=== PATIENT | female | born 1995 | race Caucasian/White ===

== ENCOUNTER 2022-11-24 05:27 | Inpatient (IN) ==
--- NOTE | 2022-11-14 15:57 | Anesthesiology Consultation ---
Date of Service November 14, 2022 Assessment & Plan (1) Encounter for pre-operative examination: Infectious disease screening: Per manager transport on 11/14: No known infectious disease contacts or current infectious disease symptoms. No noted Covid positive test result in past 90 days. 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 Surgery Operation Date: 11/24/22 07:30 Proposed Procedures p Section (Delivery of Baby through abdominal incision) - Derrick Singh MD Height/Weight Height: 5 ft 5 in Weight: 108.862 kg Allergies Allergy/AdvReac Type Severity Reaction Status Date / Time No Known Drug Allergies Allergy Verified 11/14/22 15:30 Medications Home Medications Medication Instructions Recorded Confirmed Last Taken prenat.vits,darlene,[id number] 1 tab PO DAILY 04/24/22 11/14/22 Unknown ondansetron 4 mg disintegrating 4 mg PO Q8H PRN nausea and 05/22/22 11/14/22 Unknown tablet vomiting #14 tabs famotidine 40 mg tablet 40 mg PO QAM 11/14/22 11/14/22 Unknown Past Medical History Medical History Allergic rhinitis Exercise-induced bronchospasm Hx "years ago" No inhaler use x years, no current issues GERD (gastroesophageal reflux disease) Reactive airway disease No inhaler use x years, no current issues Past Family History Family History Grandfather Asthma Unknown Asthma Grandmother Colon cancer Aunt Colon cancer Denies family history of Ovarian cancer Breast cancer Past Surgical History Surgical History History of dental surgery Hx of colonoscopy Hx of LASIK Social History Smoking Status: Never smoker Do You Dip or Chew Tobacco: No Hx Alcohol Use: Yes alcohol intake frequency: other Alcohol Intake Frequency Comment: not while , but prior to a few times per month Hx Substance Use: No substance use type: does not use
[2022-11-24] MEDS ORDERED: LACTATED RINGER'S 1,000 ML IV SCH (06:00)
[2022-11-24] MEDS ORDERED: CITRIC ACID/SODIUM CITRATE 15 ML UDC PO SCH (06:00)
[2022-11-24 06:28] LABS: Basophils # (auto) 0.02 K/uL (0.00-0.20); Basophils % (auto) 0.2 %; Eosinophils # (auto) 0.06 K/uL (0.00-0.50); Eosinophils % (auto) 0.6 %; Hematocrit (blood only) 32.3 % (37.0-47.0); Hemoglobin 10.8 g/dl (12.0-16.0); Immature Granulocytes # (auto) 0.04 K/uL (0.01-0.20); Immature Granulocytes % (auto) 0.4 %; Lymphocytes # (auto) 2.25 K/uL (1.20-3.40); Lymphocytes % (auto) 23.8 %; Mean Corpuscular Hemoglobin 28.6 pg (25.0-34.0); Mean Corpuscular Hgb Conc 33.4 g/dL (32.0-36.0); Mean Corpuscular Volume 85.4 fL (80.0-100.0); Mean Platelet Volume 11.9 fL (9.4-12.4); Monocytes # (auto) 0.62 K/uL (0.11-0.59); Monocytes % (auto) 6.5 %; Neutrophils # (auto) 6.48 K/uL (1.40-6.50); Neutrophils % (auto) 68.5 %; Platelet Count 270 K/uL (130-400); RDW Coefficient of Variation 13.3 % (11.5-14.5); RDW Standard Deviation 41.2 fL (36.4-46.3); Red Blood Count 3.78 M/uL (4.20-5.40); White Blood Count 9.47 K/ul (4.8-10.8)
[2022-11-24] MEDS ORDERED: SODIUM CHLORIDE 0.9% 250 ML IV PRN (06:29)
[2022-11-24] MEDS ORDERED: fentaNYL citrate PF 100 MCG/2 ML VIAL ONE (06:32)
[2022-11-24] MEDS ORDERED: MoRPHine SULFATE PF 1 MG/ML 10 ML AMP/VIAL ONE (06:32)
[2022-11-24] MEDS ORDERED: OXYTOCIN 10 UNITS/ML VIAL ONE (06:32)
--- NOTE | 2022-11-24 07:29 | History & Physical Report ---
Date of Service November 24, 2022 Assessment & Plan (1) Supervision of normal intrauterine in primigravida: Plan: 27yo at 39w0d GA presents for pLTCS for breech presentation. 1. Fetus: Reactive 2. Vitals: WNL 3. Suspected LGA. (2) Obesity affecting , antepartum: (3) Breech presentation: Admission and Anticipated Discharge Date Admission Date: November 24, 2022 History of Present Illness Primary Care Provider: DEB Gallegos 27yo at 39w0d GA presents for pLTCS for breech presentation. and Delivery Plans Breech and lga >98% C/S SCHEDULED FOR 11/24/[address] CARCAMO Obesity (BMI between 35-39 @ beginning of ) *Growth US @ 32 wks *Weekly NSTs @ 36wks +Chlamydia @ NOB (RNA) Retested at 9wk at patient request, culture rather than RNA as instructed by LAB, was negative. Retest @ 36 weeks +GBS - treat in labor OB Labs: Blood Type O Positive 05/05/22 Antibody Screen NEGATIVE 05/05/22 Hemoglobin 11.4 g/dl (12.0-16.0) L 09/12/22 Hematocrit 33.5 % (37.0-47.0) L 09/12/22 Mean Corpuscular Volume 89.5 fL (80.0-100.0) 05/05/22 Platelet Count 319 K/uL (130-400) 05/05/22 Rubella IgG Antibody Immune (Immune) 05/05/22 Rapid Plasma Reagin Nonreactive (Nonreactive) 05/05/22 Hepatitis B Surface Antigen. NON-REACTIVE (NON-REACTIVE) 05/05/22 Hepatitis C Antibody (EIA) NON-REACTIVE (NON-REACTIVE) 05/05/22 HIV (1&2) Ag and Ab Confirmation NON-REACTIVE (NON-REACTIVE) 05/05/22 Glucose 1 Hour 50 gm Load 154 mg/dl (70-130) H 09/12/22 OB Optional Labs: Chlamydia trachomatis RNA DETECTED (NotDetected) A 04/25/22 Neisseria gonorrhoeae RNA Not Detected (NotDetected) 04/25/22 Thyroid Stimulating Hormone (TSH) 2.740 uIu/ml (0.300-4.500) 09/20/18 Labs Reviewed: low risk cfdna - sln declines afp - sln CT culture was negative--akh Allergies Allergy/AdvReac Type Severity Reaction Status Date / Time No Known Drug Allergies Allergy Verified 11/19/22 14:36 Home Medications Medication Instructions Recorded Confirmed Type prenat.vits,darlene,[id number] 1 tab PO DAILY 04/24/22 11/19/22 History ondansetron 4 mg disintegrating 4 mg PO Q8H PRN nausea and 05/22/22 11/19/22 Rx tablet vomiting #14 tabs famotidine 40 mg tablet 40 mg PO QAM 11/14/22 11/19/22 History Patient History Medical History Allergic rhinitis Exercise-induced bronchospasm Hx "years ago" No inhaler use x years, no current issues GERD (gastroesophageal reflux disease) Reactive airway disease No inhaler use x years, no current issues Surgical History History of dental surgery Hx of colonoscopy Hx of LASIK Family History Grandfather Asthma Unknown Asthma Grandmother Colon cancer Aunt Colon cancer Denies family history of Ovarian cancer Breast cancer Social History (Updated 04/24/22 @ 09:56 by Preeti Andujar) Smoking Status: Never smoker Second Hand Exposure: No; Do You Dip or Chew Tobacco: No; Tobacco Cessation Education Requested by Patient: No Hx Alcohol Use: Yes Hx Substance Use: No Preferred Language: Turkmen Communication Ability: Effective Central Processing Technician Required: No Beliefs That Will Affect Care: None marital status: marital status details: Lico (27) [phone] Current Living Situation: Spouse Current Living Situation Comment: lives with spouse, 2 dogs. current occupational status: employed current occupation: Admin Coordinatior at [employer] Other Information That Helps Us Care for You: No Feels Safe at Home: Yes Safety Concerns: Feels Safe At This Time Diet: regular caffeine: Yes Physical Activity Frequency: 3-4 Times per Week Seatbelt Use: always Assistive Devices: None Physical Exam Constitutional: WD/WN, vitals as above Respiratory: normal respiratory effort, lungs clear to auscultation Cardiovascular: RRR, no murmur, no edema Psychiatric: A+Ox3, euthymic affect Results & Data Vital Signs (Past 12 Hours) Vital Signs Temp Pulse Resp BP 11/24/22 06:14 36.7 C 18 11/24/22 07:08 82 107/68 11/24/22 05:58 91 H 118/60 Code Status & VTE Plan VTE Prophylaxis Plan VTE Prophylaxis will be ordered: No Reason for no VTE drug order: Treatment not indicated Coding Level of Care Code None Diagnoses Supervision of normal intrauterine in primigravida Z34.00 Obesity affecting , antepartum O99.210 Breech presentation O32.1XX0
[2022-11-24] MEDS ORDERED: ePHEDrine sulfate 50 MG/ML AMP IV PRN (08:19)
[2022-11-24] MEDS ORDERED: LACTATED RINGER'S 500 ML IV PRN (08:19)
[2022-11-24] MEDS ORDERED: PROMETHAZINE HCL 25 MG in SODIUM CHLORIDE 0.9% 50 ML IV PRN (08:19)
[2022-11-24] MEDS ORDERED: NALOXONE HCL 0.08 MG in SYRINGE 1.8 ML IV PRN (08:19)
[2022-11-24] MEDS ORDERED: diphenhydrAMINE 50 MG/ML VIAL IV PRN (08:19)
[2022-11-24] MEDS ORDERED: NALOXONE HCL 1 MG in SODIUM CHLORIDE 0.9% 1,000 ML IV PRN (08:19)
[2022-11-24] MEDS ORDERED: NALBUPHINE HCL INJ 10 MG/ML AMP IV PRN (08:19)
[2022-11-24] MEDS ORDERED: KETOROLAC 30 MG/ML VIAL IV PRN ×2 (08:19→09:18)
[2022-11-24] MEDS ORDERED: MoRPHine SULFATE PF 1 MG/ML 10 ML AMP/VIAL INT SPINAL ONE (08:19)
[2022-11-24] MEDS ORDERED: NALOXONE HCL 0.4 MG/1 ML VIAL/CARP IV PRN (08:19)
[2022-11-24] MEDS ORDERED: HYDROmorphone INJ 0.5 MG/0.5 ML SYR IV PRN (08:19)
[2022-11-24] MEDS ORDERED: SODIUM CHLORIDE 0.9% 1,000 ML IV SCH (08:30)
[2022-11-24] MEDS ORDERED: NO NARCOTICS OR SEDATIVES SCH (08:30)
[2022-11-24] MEDS ORDERED: DC INTRASPINAL MORPHINE SCH (08:30)
--- NOTE | 2022-11-24 09:05 | Operative Report ---
PG Post Operative Report Pre & Post Diagnosis Operation Date: 11/24/22 07:30 Pre-Op Diagnosis: Intrauterine , primary section for breech presentation Post-Op Diagnosis: Intrauterine , primary section for breech presentation I identified the patient and participated in the time-out.: Yes Procedure Operation Date: 11/24/22 07:30 Actual Procedures p Section (Delivery of Baby through abdominal incision) living male at 0814(Bilateral) - Derrick Singh MD Surgeon Derrick Singh MD Senior Facilities Manager Dr Adames Estimated Blood Loss 700 Findings Consistent with Post-Op Diagnosis Specimens None Description of Procedure The patient was taken to the operating room after consents were ensured. Upon presentation, she was properly identified. Spinal anesthesia was obtained without difficulty. The patient was then prepped and draped in normal sterile fashion. Preprocedural timeout was performed. A Pfannenstiel incision was then made with a knife at the prior location. This was carried down to underlying fascia with the Bovie. The fascia was nicked at the midline with a knife and extended laterally with pickups and Nuno scissors. The superior aspect of the fascia was grasped with Kochers x2, elevated off the underlying rectus muscles with blunt dissection and Nuno scissors. Inferior aspect of the fascia was grasped with Kochers x2, elevated off the underlying rectus muscles using blunt dissection. The midline was then entered bluntly, placed on stretch to provide adequate room for delivery. A low transverse uterine incision was then made with a knife. The uterine cavity and amniotic cavity entered bluntly, placed on stretch to provide adequate room for delivery. Baby was noted to be in breech presentation and the bottom was delivered, the legs were swept in an internal rotation to delivery. Delivery continue until shoulder level and the arm were swept in an internal rotation for delivery. head delivered with out difficulty. Cord was double clamped and cut and taken of the awaiting nursery staff for evaluation. Cord blood was obtained. Attention was then turned to delivery of the placenta, which was delivered intact, 3-vessel cord, with gentle cord traction and uterine massage. The uterus was then exteriorized, wrapped in a wet lap and several passes were made, removing any remaining membranes with a dry lap. The hysterotomy was then reapproximated with 0 Vicryl continuous running locked stitch. A second imbricating layer was performed. The hysterotomy was then reinspected and hemostasis was noted. The uterus was then returned to the maternal abdomen. The muscles, subcutaneous and fascial layers were inspected to be hemostatic.The facia was reapproximated with 0 Vicryl in continuous stitch. The subcutaneous layers were reapproximated with 2-0 plain and continuous running stitch in 2 layers. The skin was reapproximated with 3-0 Vicryl with a subcuticular stitch. Needle, sponge, and instrument counts were correct at the completion of the case. Both mother and stable in the immediate post-delivery period I attest to the content of the Intraoperative Record and any orders documented therein. Any exceptions are noted below. OB Procedure charges OB Charges 08859
[2022-11-24] MEDS ORDERED: BENZOCAINE 20% SPRY 85 APPLN/85 GM CAN EXT PRN (09:18)
[2022-11-24] MEDS ORDERED: HYDROCORTISONE ACETATE 25 MG SUPP PR PRN (09:18)
[2022-11-24] MEDS ORDERED: DIPHTHERIA/TETANUS/PERTUSSIS Vaccine (Tdap, Age 7+yrs) 0.5mL SYR/VL IM ONE (09:18)
[2022-11-24] MEDS ORDERED: SENNA 8.6 MG TAB PO PRN (09:18)
[2022-11-24] MEDS ORDERED: MAGNESIUM HYDROXIDE SUSP 30 ML UDC PO PRN (09:18)
--- NOTE | 2022-11-24 09:45 | Anesthesiology Progress Note ---
Date of Service November 24, 2022 Anesthesia Post Procedure Vital Signs Vital Signs: Temp Pulse Resp BP Pulse Ox 11/24/22 09:01 36.5 C 17 11/24/22 06:14 36.7 C 18 11/24/22 09:44 63 105/56 L 11/24/22 09:40 71 98 11/24/22 09:35 77 100 11/24/22 09:34 73 116/66 11/24/22 09:30 73 99 11/24/22 09:25 81 98 11/24/22 09:24 73 107/57 L 11/24/22 09:20 78 99 11/24/22 09:15 75 99 11/24/22 09:14 74 107/58 L 11/24/22 09:09 82 99 11/24/22 09:04 79 98 11/24/22 09:03 82 116/62 11/24/22 07:08 82 107/68 11/24/22 05:58 91 H 118/60 Notes Mental Status: alert / awake / arousable Patient Amnestic to Procedure: Yes Nausea / Vomiting: adequately controlled Pain: adequately controlled Airway Patency, RR, SpO2: stable & adequate BP & HR: stable & adequate Hydration State: stable & adequate Neuraxial Anesthesia: was administered and sensory block is resolving Anesthetic Complications: no major complications apparent
[2022-11-24] MEDS: SIMETHICONE 80 MG CHEW PO SCH ×3 (13:23→21:43)
[2022-11-24] MEDS: OXYTOCIN 20 UNITS in LACTATED RINGER'S 1,000 ML IV SCH ×2 (15:13→21:45)
[2022-11-24] MEDS: LACTATED RINGER'S 1,000 ML IV SCH ×2 (19:37→19:38)
[2022-11-24] MEDS: DOCUSATE SODIUM 100 MG CAP PO SCH (21:43)
[2022-11-25] MEDS ORDERED: ONDANSETRON INJ 2 MG/ML 2 ML VIAL IV PRN (02:19)
[2022-11-25] MEDS ORDERED: diphenhydrAMINE Capsule 25 MG CAP PO PRN (02:19)
[2022-11-25] MEDS ORDERED: PROMETHAZINE HCL 25 MG in SODIUM CHLORIDE 0.9% 50 ML IV PRN (02:19)
[2022-11-25] MEDS ORDERED: diphenhydrAMINE 50 MG/ML VIAL IV PRN (02:19)
[2022-11-25] MEDS: oxyCODONE/ACETAMINOPHEN 5mg/325mg TAB PO PRN ×5 (04:44→22:44)
[2022-11-25] MEDS: LACTATED RINGER'S 1,000 ML IV SCH ×2 (04:44→23:59)
[2022-11-25] MEDS: IBUPROFEN 600 MG TAB PO PRN ×5 (04:45→22:44)
--- NOTE | 2022-11-25 06:20 | Obstetrical Progress Note ---
Date of Service <Mk DO Lorenzo - Last Filed: 11/25/22 06:20> November 25, 2022 Assessment & Plan <Mk PizanoDO yann - Last Filed: 11/25/22 06:20> (1) S/P section: Plan Post op day 1 s/p Vital signs reviewed and WNL Pt feels well today, eating, voiding, and ambulating well Pain well controlled with Percocet and Motrin Routine post op care - OOB, ambulation, diet progression as tolerated After discharge, will have 6 week follow-up with Dr. Singh. <Katie Gauthier MD - Last Filed: 11/25/22 07:43> (1) S/P section: Subjective <Mk Ventura DO - Last Filed: 11/25/22 06:20> Ambulation: ambulating normally Voiding: no voiding problems Passing Gas:: Yes (no bowel movement since ) Diet Tolerance:: regular diet Lochia:: Moderate Feeding Type:: breast feeding Pain well controlled with Percocet and Motrin Review of Systems -Denies fever or chills -Denies dyspnea, chest pain, or palpitations -Denies breast pain -Denies dysuria -Denies headache or changes in vision Physical Exam <Mk Ventura DO - Last Filed: 11/25/22 06:20> General: Alert and oriented. No acute distress Cardiac: Regular rate and rhythm, no murmurs appreciated Respiratory: Lungs clear to auscultation bilaterally, No increased work of breathing Abdominal: Soft, non-tender, non-distended. Bowel sounds present. Uterus: Uterine fundus firm, palpable below umbilicus Extremities: No lower extremity edema, calves non-tender bilaterally Results & Data <Mk Ventura DO - Last Filed: 11/25/22 06:20> Vital Signs (Past 12 Hours) Vital Signs Resp Pulse Ox 11/24/22 19:00 18 100 <Katie Gauthier MD - Last Filed: 11/25/22 07:43> Co-Signing Physician Notes Resident Physician Supervision Note: I interviewed and examined the patient. Discussed with Dr. Ventura and agree with findings and plan as documented in the note. Any exceptions or clarifications are listed here: POD1 s/p pLTCS, doing well. VSS, exam benign and wnl, incision c/d/i. Continue routine pp care Documented By: Katie Gauthier MD Resident Activity Tracking <Mk Ventura DO - Last Filed: 11/25/22 06:20> Resident Involvement: Resident Care Provided Care Provided: OB Delivery
[2022-11-25 07:14] LABS: Basophils # (auto) 0.03 K/uL (0.00-0.20); Basophils % (auto) 0.3 %; Eosinophils # (auto) 0.03 K/uL (0.00-0.50); Eosinophils % (auto) 0.3 %; Hematocrit (blood only) 29.2 % (37.0-47.0); Hemoglobin 9.6 g/dl (12.0-16.0); Immature Granulocytes # (auto) 0.04 K/uL (0.01-0.20); Immature Granulocytes % (auto) 0.3 %; Lymphocytes # (auto) 1.78 K/uL (1.20-3.40); Lymphocytes % (auto) 15.1 %; Mean Corpuscular Hemoglobin 28.7 pg (25.0-34.0); Mean Corpuscular Hgb Conc 32.9 g/dL (32.0-36.0); Mean Corpuscular Volume 87.2 fL (80.0-100.0); Mean Platelet Volume 11.9 fL (9.4-12.4); Monocytes # (auto) 0.54 K/uL (0.11-0.59); Monocytes % (auto) 4.6 %; Neutrophils % (auto) 79.4 %; Platelet Count 217 K/uL (130-400); RDW Coefficient of Variation 13.4 % (11.5-14.5); Red Blood Count 3.35 M/uL (4.20-5.40); White Blood Count 11.82 K/ul (4.8-10.8)
[2022-11-25] MEDS: PRENATAL VITAMIN 1 TAB PO SCH (09:28)
[2022-11-25] MEDS: DOCUSATE SODIUM 100 MG CAP PO SCH ×2 (09:28→20:35)
[2022-11-25] MEDS: FERROUS SULFATE 325 MG TAB PO SCH (09:28)
[2022-11-25] MEDS: SIMETHICONE 80 MG CHEW PO SCH ×4 (09:28→20:35)
[2022-11-25] MEDS ORDERED: bisacodyL 5 MG TABEC PO SCH (20:00)
[2022-11-26] MEDS: LACTATED RINGER'S 1,000 ML IV SCH ×4 (03:43→21:08)
--- NOTE | 2022-11-26 05:09 | Obstetrical Progress Note ---
Date of Service <Mk Lorenzo - Last Filed: 11/26/22 06:09> November 26, 2022 Assessment & Plan <Mk Ventura - Last Filed: 11/26/22 06:09> (1) S/P section: Plan Post op day 2 s/p Vital signs reviewed and WNL Pt feels well today, eating, voiding, and ambulating well Pain well controlled with Percocet and Motrin Routine post op care - OOB, ambulation, diet progression as tolerated After discharge, will have 6 week follow-up with Dr. Singh. <Felisha Tyler MD - Last Filed: 11/26/22 07:16> (1) S/P section: Subjective <Mk VenturaDO yann - Last Filed: 11/26/22 06:09> Ambulation: ambulating normally Voiding: no voiding problems Passing Gas:: Yes (no bowel movement since ) Diet Tolerance:: regular diet Lochia:: Small Feeding Type:: breast feeding Pain well controlled with Percocet and Motrin Review of Systems -Denies fever or chills -Denies dyspnea, chest pain, or palpitations -Denies breast pain -Denies dysuria -Denies headache or changes in vision Physical Exam <Mk PizanoDO yann - Last Filed: 11/26/22 06:09> General: Alert and oriented. No acute distress Cardiac: Regular rate and rhythm, no murmurs appreciated Respiratory: Lungs clear to auscultation bilaterally, No increased work of breathing Abdominal: Soft, non-tender, non-distended. Bowel sounds present. Uterus: Uterine fundus firm, palpable below umbilicus Extremities: No lower extremity edema, calves non-tender bilaterally Results & Data <Mklopez Ventura DO - Last Filed: 11/26/22 06:09> Vital Signs (Past 12 Hours) Vital Signs Temp Pulse Resp BP O2 Del Method 11/25/22 23:00 36.4 C L 85 18 103/71 Room Air 11/25/22 19:20 36.9 C 86 18 112/76 Room Air <Felisha Tyler MD - Last Filed: 11/26/22 07:16> Co-Signing Physician Notes Resident Physician Supervision Note: I interviewed and examined the patient. Discussed with Dr. Ventura and agree with findings and plan as documented in the note. Any exceptions or clarifications are listed here: [ ] Documented By: Felisha Tyler MD, FACOG Resident Activity Tracking <Mk Ventura, - Last Filed: 11/26/22 06:09> Resident Involvement: Resident Care Provided Care Provided: OB Delivery
[2022-11-26] MEDS: SIMETHICONE 80 MG CHEW PO SCH ×4 (08:08→20:40)
[2022-11-26] MEDS: DOCUSATE SODIUM 100 MG CAP PO SCH ×2 (08:09→20:40)
[2022-11-26] MEDS: FERROUS SULFATE 325 MG TAB PO SCH (08:09)
[2022-11-26] MEDS: PRENATAL VITAMIN 1 TAB PO SCH (08:09)
[2022-11-26 08:21] LABS: Hematocrit (blood only) 26.7 % (37.0-47.0); Hemoglobin 8.6 g/dl (12.0-16.0)
[2022-11-26] MEDS ORDERED: bisacodyL 10 MG SUPP PR PRN (08:52)
[2022-11-26] MEDS: IBUPROFEN 600 MG TAB PO PRN ×3 (09:16→22:44)
[2022-11-26] MEDS: oxyCODONE/ACETAMINOPHEN 5mg/325mg TAB PO PRN ×3 (09:17→22:45)
[2022-11-27] MEDS: IBUPROFEN 600 MG TAB PO PRN (06:08)
[2022-11-27] MEDS: oxyCODONE/ACETAMINOPHEN 5mg/325mg TAB PO PRN (06:08)
--- NOTE | 2022-11-27 06:38 | Obstetrical Progress Note ---
Date of Service <Mk Ventura DO - Last Filed: 11/27/22 07:30> November 27, 2022 Assessment & Plan <Mk Ventura DO - Last Filed: 11/27/22 07:30> (1) S/P section: Plan Post op day 3 s/p Vital signs reviewed and WNL Pt feels well today, eating, voiding, and ambulating well Pain well controlled with Percocet and Motrin Routine post op care - OOB, ambulation, diet progression as tolerated After discharge, will have 6 week follow-up with Dr. Singh. <Derrick Singh MD - Last Filed: 11/28/22 08:11> (1) S/P section: Subjective <Mk Ventura - Last Filed: 11/27/22 07:30> Ambulation: ambulating normally Voiding: no voiding problems Passing Gas:: Yes Diet Tolerance:: regular diet Lochia:: Small Feeding Type:: breast feeding Pain well controlled with Percocet and Motrin Review of Systems -Denies fever or chills -Denies dyspnea, chest pain, or palpitations -Denies breast pain -Denies dysuria -Denies headache or changes in vision Physical Exam <Mk Ventura - Last Filed: 11/27/22 07:30> General: Alert and oriented. No acute distress Cardiac: Regular rate and rhythm, no murmurs appreciated Respiratory: Lungs clear to auscultation bilaterally, No increased work of breathing Abdominal: Soft, non-tender, non-distended. Bowel sounds present. Uterus: Uterine fundus firm, palpable below umbilicus Extremities: No lower extremity edema, calves non-tender bilaterally Results & Data <Mk Ventura - Last Filed: 11/27/22 07:30> Vital Signs (Past 12 Hours) Vital Signs Temp Pulse Resp BP O2 Del Method 11/26/22 23:40 36.8 C 96 H 18 125/88 Room Air 11/26/22 19:00 Room Air 11/26/22 19:00 36.8 C 90 18 140/88 Room Air <Derrick Singh MD - Last Filed: 11/28/22 08:11> Co-Signing Physician Notes Patient seen with resident and agree with the above findings and plan. Stable for discharge Resident Activity Tracking <Mk Ventura DO - Last Filed: 11/27/22 07:30> Resident Involvement: Resident Care Provided Care Provided: OB Delivery
[2022-11-27] MEDS: SIMETHICONE 80 MG CHEW PO SCH (07:59)
[2022-11-27] MEDS: PRENATAL VITAMIN 1 TAB PO SCH (07:59)
[2022-11-27] MEDS: DOCUSATE SODIUM 100 MG CAP PO SCH (07:59)
[2022-11-27] MEDS: FERROUS SULFATE 325 MG TAB PO SCH (07:59)
[2022-11-27] MEDS: LACTATED RINGER'S 1,000 ML IV SCH (11:32)
== END 2022-11-27 12:00 | disposition home or self-care (01) | DRG 788 ==
LOC: 4S1 05:27 → EDSTATUS 09:20 → 4E2 11:59